=== PATIENT | male | born 1995 | race American Indian/Alaskan Native ===

== ENCOUNTER 2020-12-27 11:09 | Outpatient (CLI) | payer OTHER ==
--- NOTE | 2020-12-27 14:33 | Ultrasound Report ---
BILATERAL DIGITAL DIAGNOSTIC MAMMOGRAM WITH CAD CONVENTIONAL, 12/27/2020 BILATERAL LIMITED BREAST ULTRASOUND CLINICAL INFORMATION / INDICATION: Male patient reports generalized breast pain and lumpiness for malgorzata roximately 7 years. TECHNIQUE: Digital bilateral mammographic imaging was performed. Limited ultrasound was performed. Th is examination was interpreted with the benefit of Computer-Aided Detection (CAD) analysis. COMPARISON: None. This is the patient's first mammogram. FINDINGS: Breast Density: There are scattered areas of fibroglandular density. MAMMOGRAPHIC FINDINGS: No dominant mass, suspicious calcifications, or architectural distortion in ei ther breast. There is moderate symmetric bilateral gynecomastia. ULTRASOUND FINDINGS: Targeted ultrasound evaluation was performed of the area of interest. Sonograp hic evaluation of the right and left retroareolar regions in the patient's area of clinical concern d emonstrates mildly heterogeneous breast tissue. There is no evidence of suspicious solid mass or shad owing. IMPRESSION: No mammographic or sonographic evidence of malignancy. There is moderate symmetric bilate ral gynecomastia corresponding to the patient's areas of clinical concern in both breasts. Follow up recommendation: Clinical exam BI-RADS Category 2: Benign. A "normal" or negative report should not discourage follow up or biopsy of a clinically significant f inding. A written summary of these findings will be mailed to the patient. The patient will be entered into a mammography reporting system which will generate a reminder letter for the patient's next appointmen t at the appropriate interval. According to the [employer], yearly mammograms are recommended starting at age 40 and continuing as long as a woman is in good health. Breast MRI is recommended for women with an malgorzata roximately 20-25% or greater lifetime risk of breast cancer, including women with a strong family his tory of breast or ovarian cancer and women who have been treated for Hodgkin's disease. Signer Name: Aditi Do MD Signed: 12/27/2020 2:29 PM Workstation Name: [id number] [place]
== END 2020-12-27 11:10 | disposition home or self-care (01) ==
LOC: US 11:09
PROVIDERS: ATTEND Urology
DX: N62 Hypertrophy of breast (principal)
CPT/HCPCS: 77066